=== PATIENT | male | born 1955 | race Caucasian/White ===

== ENCOUNTER 2022-06-28 02:32 | Observation (INO) ==
[2022-06-28] MEDS ORDERED: Ondansetron ODT 4 MG TAB.RAPDIS SL ONE (03:06)
[2022-06-28 03:20] LABS: Basophils % 0.3 %; Eosinophils # 0.1 K/mcL (0.0-0.6); Eosinophils % 1.7 %; Hematocrit 36.6 % (37.5-50.1); Hemoglobin 12.9 g/dL (12.9-16.9); Immature Granulocytes % 0.8 % (0-4); Lymphocytes # 1.2 K/mcL (0.6-4.6); Lymphocytes % 18.7 %; Mean Corpuscular HGB Conc 35.2 g/dL (31.6-35.5); Mean Corpuscular Hemoglobin 30.6 pg (28.0-33.3); Mean Corpuscular Volume 86.7 fL (83.0-100.0); Mean Platelet Volume 7.7 fL (9.4-12.4); Monocytes # 0.6 K/mcL (0.0-1.3); Neutrophils # 4.4 K/mcL (1.6-8.9); Platelet Count 292 K/mcL (140-400); Red Blood Count 4.22 M/mcL (4.19-5.50); Red Cell Distribution Width 12.7 % (11.5-14.5); Segmented Neutrophils % 68.5 %; White Blood Count 6.4 K/mcL (4.3-11.1)
[2022-06-28 03:38] LABS: BUN/Creatinine Ratio 12 (6-26); Blood Urea Nitrogen 9 mg/dL (8-23); Calcium 9.6 mg/dL (8.6-10.3); Carbon Dioxide 31 mEq/L (23-29); Chloride 85 mEq/L (98-107); Glucose 101 mg/dL (70-105); Osmolality,Calculated 257 (280-300); Potassium 3.4 mEq/L (3.5-5.1); Sodium 124 mEq/L (136-145)
[2022-06-28] MEDS ORDERED: 0.9 % Sodium Chloride 500 ML IVC ONE (03:41)
[2022-06-28] MEDS ORDERED: 0.9 % Sodium Chloride 1,000 ML IVC SCH (03:45)
[2022-06-28] MEDS ORDERED: Prochlorperazine 10 MG/2 ML VIAL IVP PRN ×2 (04:25→05:05)
[2022-06-28 05:00] LABS: Bilirubin,Urine Negative (Negative); Blood,Urine Negative (Negative); Clarity,Urine Clear (Clear); Color,Urine Yellow (Yellow); Glucose,Urine (UA) Normal (Normal); Ketones,Urine Negative (Negative); Leukocyte Esterase,Urine Negative (Negative); Nitrite,Urine Negative (Negative); Protein,Urine Negative (Neg-Trace); Urobilinogen,Urine Normal (Normal)
[2022-06-28] MEDS ORDERED: Albuterol 2.5 MG/3 ML NEBULIZER IH PRN (05:05)
[2022-06-28] MEDS ORDERED: Melatonin 3 MG TABLET PO PRN (05:05)
[2022-06-28] MEDS ORDERED: Ondansetron ODT 4 MG TAB.RAPDIS SL PRN (05:05)
[2022-06-28] MEDS ORDERED: Naloxone 0.4 MG/ML INJ IVP PRN (05:05)
[2022-06-28] MEDS ORDERED: MOM Conc 10 ML UD.LIQ PO PRN (05:05)
[2022-06-28] MEDS: 0.9 % Sodium Chloride 1,000 ML IVC SCH ×2 (05:19→17:24)
[2022-06-28] MEDS ORDERED: Mag Hydrox/Al Hydrox/Simeth 30 ML UDC PO PRN (06:00)
[2022-06-28] MEDS: Ipratropium/Albuterol Neb 3 ML IH SCH ×2 (06:50→07:36)
[2022-06-28] MEDS ORDERED: Ipratropium/Albuterol Neb 3 ML IH PRN (08:19)
[2022-06-28 08:37] LABS: Thyroid Stimulating Hormone 1.134 mcIU/mL (0.340-5.600)
[2022-06-28] MEDS: carvediloL 6.25 MG TABLET PO SCH ×2 (09:41→16:43)
[2022-06-28] MEDS: Fluticasone Propionate Nasal 50 MCG/SPRAY BOTTLE NS SCH (09:42)
[2022-06-28] MEDS: *HR* OxyCODONE/APAP 10/325 TABLET PO PRN ×3 (10:42→20:29)
[2022-06-28] MEDS: lisinopriL 20 MG TABLET PO SCH (15:08)
[2022-06-28] MEDS ORDERED: *HR* LORazepam 1 MG TABLET PO PRN (15:25)
[2022-06-28] MEDS: Folic Acid 1 MG TABLET PO SCH (16:43)
[2022-06-28] MEDS: Vitamin B Complex/Vit C/Vit E 1 EACH TABLET PO SCH (16:43)
[2022-06-28] MEDS: Thiamine (B-1) 100 MG TABLET PO SCH (16:43)
[2022-06-28 19:53] LABS: Estimated Average Glucose 100 mg/dl; Hemoglobin A1C 5.1 %
[2022-06-28] MEDS ORDERED: Temazepam 15 MG CAPSULE PO SCH (21:00)
[2022-06-29] MEDS ORDERED: *HR* Enoxaparin 40 MG/0.4 ML SYRINGE SQ SCH (06:00)
[2022-06-29] MEDS: *HR* OxyCODONE/APAP 10/325 TABLET PO PRN ×2 (06:13→12:24)
[2022-06-29 07:45] LABS: Hematocrit 39.6 % (37.5-50.1); Hemoglobin 13.1 g/dL (12.9-16.9); Mean Corpuscular HGB Conc 33.1 g/dL (31.6-35.5); Mean Corpuscular Hemoglobin 30.4 pg (28.0-33.3); Mean Corpuscular Volume 91.9 fL (83.0-100.0); Mean Platelet Volume 9.6 fL (9.4-12.4); Platelet Count 240 K/mcL (140-400); Red Blood Count 4.31 M/mcL (4.19-5.50); White Blood Count 10.4 K/mcL (4.3-11.1)
[2022-06-29 08:06] LABS: BUN/Creatinine Ratio 18 (6-26); Blood Urea Nitrogen 12 mg/dL (8-23); Carbon Dioxide 20 mEq/L (23-29); Chloride 94 mEq/L (98-107); Glucose 44 mg/dL (70-105); Osmolality,Calculated 265 (280-300); Sodium 129 mEq/L (136-145)
[2022-06-29] MEDS: carvediloL 6.25 MG TABLET PO SCH (08:44)
[2022-06-29] MEDS: Folic Acid 1 MG TABLET PO SCH (08:44)
[2022-06-29] MEDS: lisinopriL 20 MG TABLET PO SCH (08:44)
[2022-06-29] MEDS: Thiamine (B-1) 100 MG TABLET PO SCH (08:44)
[2022-06-29] MEDS: Vitamin B Complex/Vit C/Vit E 1 EACH TABLET PO SCH (08:44)
[2022-06-29] MEDS: Fluticasone Propionate Nasal 50 MCG/SPRAY BOTTLE NS SCH (08:49)
[2022-06-29] MEDS ORDERED: predniSONE 10 MG TABLET PO SCH (09:00)
[2022-06-29 11:02] VITALS: BP 168/66; PULSE 71; RESP 16; TEMP 97.6; O2SAT 100
== END 2022-06-29 14:36 | disposition home or self-care (01) ==
LOC: EMEROOPIK 02:32 → INPPIK 02:32
PROVIDERS: ADMIT Internal Medicine; ATTEND Internal Medicine